=== PATIENT | female | born 1990 | race African-American/Black ===

== ENCOUNTER 2017-12-08 12:14 | Emergency (ER) | payer OTHER ==
[2017-12-08 14:03] LABS: HIV (1/2) Antibody/Antigen Non-Reactive (NonReactive); HIV 1/2 INDEX 0.07 S/CO (<1.00); Hep C IgG Ab Non-Reactive (NonReactive); Hep C Index 0.11 S/CO (0-0.79)
[2017-12-08 14:37] LABS: HBSAB Concentration 10051.45 mIU/mL; Hep B Surf AB Reactive (NonReactive)
== END 2017-12-08 13:18 | disposition home or self-care (01) ==
LOC: ERS 12:14
DX: Z77.21 Contact with and (suspected) exposure to potentially hazardous body fluids (principal)
CPT/HCPCS: 36415; 86706; 86803; 87389; 99283

== ENCOUNTER 2017-12-18 13:52 | Emergency (ER) | payer OTHER ==
[2017-12-18 14:56] LABS: HIV (1/2) Antibody/Antigen Non-Reactive (NonReactive); HIV 1/2 INDEX 0.31 S/CO (<1.00); Hep C IgG Ab Non-Reactive (NonReactive)
[2017-12-18 15:34] LABS: Hep B Surf AB Reactive (NonReactive)
[2017-12-18 15:35] LABS: HBSAB Concentration 10249.38 mIU/mL
== END 2017-12-18 14:13 | disposition home or self-care (01) ==
LOC: ERS 13:52
DX: S60.812A Abrasion of left wrist, initial encounter (principal); Z77.21 Contact with and (suspected) exposure to potentially hazardous body fluids; K21.9 Gastro-esophageal reflux disease without esophagitis; F41.9 Anxiety disorder, unspecified; Y99.0 Civilian activity done for income or pay
CPT/HCPCS: 36415; 86706; 86803; 87389; 99283